=== PATIENT | female | born 1975 | race Two or more races ===

== ENCOUNTER 2024-03-05 19:29 | Emergency (ER) | payer OTHER ==
[~2024-03-05] VITALS: Ht 160 cm; Wt 56.2 kg
[2024-03-05 20:09] VITALS: BP 145/90; O2SAT 100
[2024-03-05] MEDS ORDERED: FAMOtidine 10 MG/ML (4ML VIAL) IV PUSH ONE (20:15)
== END 2024-03-05 20:29 | disposition home or self-care (01) ==
LOC: ER 19:29
DX: R21 Rash and other nonspecific skin eruption (principal); T78.40XA Allergy, unspecified, initial encounter; Z91.018 Allergy to other foods